=== PATIENT | male | born 1965 | race Caucasian/White ===

== ENCOUNTER 2025-06-03 09:23 | Day surgery (SDC) | payer BC ==
[2025-06-03] MEDS ORDERED: Ringers Lactate 1,000 ML IV ONE ×2 (09:51→13:21)
[2025-06-03] MEDS ORDERED: MIDAZOLAM HCL 2 MG/2 ML INJ ONE (10:54)
[2025-06-03] MEDS ORDERED: FENTANYL CITR 100 MCG/2 ML ONE (10:55)
[2025-06-03] MEDS ORDERED: ROCURONIUM 50 MG/5 ML VIAL IV ONE (10:55)
[2025-06-03] MEDS ORDERED: LIDOCAINE 2% MPF 5 ML VIAL ONE (10:56)
[2025-06-03] MEDS: CEFAZOLIN SODIUM 2 GM/VIAL ONE (11:17)
[2025-06-03] MEDS: LIDOCAINE HCL/EPINEPHRINE 20 ML MDV ONE (11:30)
[2025-06-03] MEDS ORDERED: ONDANSETRON 4 MG/2 ML VIAL ONE (11:59)
[2025-06-03] MEDS ORDERED: GLYCOPYRROLATE 0.2 MG/ML SYR ONE (12:13)
[2025-06-03] MEDS ORDERED: NEOSTIGMINE 1 MG/ML -10 ML VIAL ONE (12:13)
--- NOTE | 2025-06-03 12:19 | P.OP ---
Preoperative diagnosis: RIGHT Inguinal Hernia Postoperative diagnosis: RIGHT Inguinal Hernia Primary procedure: Open RIGHT Inguinal Hernia Repair with mesh Anesthesia: GETA + Local Estimated blood loss: <2cc Specimen: None Findings: External oblique thin Complications: None Implants: Bard Large Perfix plug and patch Transferred to: Recovery Room Condition: Good
--- NOTE | 2025-06-03 13:01 | OP ---
Date of Procedure: 06/03/2025 Surgeon: Elmo Marcano MD, Preoperative Diagnosis: Right inguinal hernia. Postoperative Diagnosis: Right inguinal hernia. Procedure Performed: Open right inguinal repair with mesh. Anesthesia: General endotracheal plus local 1% lidocaine. Estimated Blood Loss: 2 cc. Specimen: None. Findings: External oblique aponeurosis thin and alveolar and damage by hernia. Complications: None. Implants: Bard large PerFix plug and patch hernia repair system. Disposition: Patient was transferred to recovery room in good condition. Procedure In Detail: After informed consent was obtained, patient was brought to the operating room, prepped and draped in the usual sterile fashion. After adequate anesthesia was achieved, I made the inguinal incision down through subcutaneous tissues. Also I dissected down through Camper's fat and Louie's fascia to expose the residual external oblique aponeurosis. At this point, this was found to be quite thin and alveolar. I made a small incision over the area down to subcutaneous tissues. I opened this in its entirety on proximal distal aspect using Metzenbaum scissors. At this point, I encircled the spermatic cord structures with Roslyn drain and dissected out the hernia from the midd le aspect of this defect. Ultimately at this point, the hernia after being dissected free from the s permatic cord, structures were reduced. The preperitoneal space then deployed a large PerFix plug in to the preperitoneal space and secured circumferentially around using a 2-0 PDS suture in a circumfer ential fashion around the edge of the defect. At this point, I irrigated the area copiously and inci sed patch appropriately, securing it to the pubic tubercle. I secured to the medial aspect once agai n with a double 2-0 PDS suture in an interrupted fashion. I then secured the medial and lateral senthil ving edges using interrupted 2-0 PDS suture on the internal oblique aponeurosis and undersurface of t he inguinal ligament. All these were thin and alveolar. At this point, I trimmed the mesh appropria tely, reconstructed the deep inguinal ring using a 2-0 PDS suture. I then closed the external obliqu e aponeurosis using a 3-0 Vicryl suture in a running fashion and the area was copiously irrigated and closed. Camper's fat and Louie's fascia using interrupted 3-0 Vicryl suture. Deep dermal plane wa s closed with 3-0 Vicryl suture and skin was closed with 4-0 Monocryl in a running fashion. Dermabon d placed over top. The patient tolerated the procedure without incident or complication and transfer red to PACU in good condition. All counts were correct at the end of the case. ERNESTO/DEBBIE Voice ID: [id number] Report ID: [id number]
[2025-06-03] MEDS ORDERED: HYDROCODONE/APAP 10/325 TAB ONE (13:21)
[2025-06-03 16:02] VITALS: TEMP 97; O2SAT 97
[2025-06-03 16:03] VITALS: BP 145/89
== END 2025-06-03 15:11 | disposition home or self-care (01) ==
LOC: OR 09:23
PROVIDERS: ATTEND Surgery
PROC: 0YU50JZ Supplement Right Inguinal Region with Synthetic Substitute, Open Approach (ICD-10-PCS; principal; 2025-06-03 11:30)
DX: K40.90 Unilateral inguinal hernia, without obstruction or gangrene, not specified as recurrent (principal); E78.00 Pure hypercholesterolemia, unspecified
CPT/HCPCS: 49505; J2704; J1100; J2710; J2003; J2250; J3010; J2405; J7120 ×2